=== PATIENT | female | born 1935 | race Caucasian/White ===

== ENCOUNTER 2018-06-26 10:24 | Outpatient (CLI) | payer MEDICARE ==
--- NOTE | 2018-06-26 11:26 | RAD ---
THORACIC SPINE THREE VIEWS: History: Thoracic compression fracture. Back pain. Comparison: None. FINDINGS: Bones show osteopenia. There is severe anterior wedge compression deformity involving the L1 vertebra . The thoracic vertebra maintain height and alignment. There is osteopenia and there are moderate hyp ertrophic changes with anterior and lateral osteophytes. Bridging osteophytes are seen on the right i n the lower thoracic spine. 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 There is severe compression deformit y of the L1 vertebra. POS: [facility]
== END 2018-06-26 10:25 | disposition home or self-care (01) ==
LOC: TBSIIMAG 10:24
PROVIDERS: ATTEND Neurological Surgery
DX: S22.008D Other fracture of unspecified thoracic vertebra, subsequent encounter for fracture with routine healing (principal); M47.894 Other spondylosis, thoracic region; M43.8X6 Other specified deforming dorsopathies, lumbar region
CPT/HCPCS: 72072

== ENCOUNTER 2019-05-26 13:26 | Outpatient (CLI) | payer MEDICARE ==
--- NOTE | 2019-05-26 15:24 | MRI ---
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 This was also present on the 2018 MRI. There has been further interval collapse of the previously collapsed T12 vertebral body. No w, the anterior two thirds of the vertebral body has approximately 80% loss of height. Mild loss of height posteriorly with minimal bony retropulsion. There is no longer bone marrow edema associated wi th this. There is T1 and T2 patchy, streaky very hypointense material within the collapsed T12 vertebral body which could either represent polymethylmethacrylate cement or sclerosis of bone. The b halina retropulsion results in mild central spinal canal stenosis that does not contact the spinal cord. Thoracic spinal cord is normal in size and signal. No syrinx. The rest of the vertebral body he ights are maintained. Bone marrow signal is normal throughout the rest of the thoracic spine levels. No central spinal spinal canal stenosis in the rest of the spine. Degenerative facet changes causing mild to moderate right neural foraminal stenosis at T10-11. No high-grade degenerative disc disease. IMPRESSION: 1.) Old compression/burst fracture of T12, with high-grade collapse of anterior two thirds, somewhat worse than on 07/03/2018. 2) no bone marrow edema associated with this or at any other level. 3) no high-grade central spinal canal stenosis at this level or any other level. 4) the rest of the thoracic spine is essentially normal.
--- NOTE | 2019-05-26 15:58 | MRI ---
MRI LUMBAR SPINE NONCONTRAST: DATE: 05/26/2019 HISTORY: 84-year-old female with wedge compression fracture of T12. Chronic low back pain. COMPARISON: 07/03/2018. FINDINGS: Further loss of height of the previously demonstrated compression-mild burst fracture of T12, now wit h approximately 80% loss of height involving anterior two thirds of the collapsed vertebral body. Very T1 hypointense and T2 hypointense streaky areas within the collapsed T12 vertebral body could re present vertebroplasty cement or sclerosis. Otherwise, the rest of that collapsed vertebral body has increased marrow signal, and no longer edema. No major spondylolisthesis. No major scoliosis. Con us medullaris terminates at L1-2. No high-grade disc space narrowing at any level. T11-12: No central or neural foraminal stenosis. T12: Minimal bony retropulsion without significant central spinal canal stenosis. T12-L1:Mild disc bulge. No significant central or neural foraminal stenosis. L1-2:Disc bulge. Posterior midline annular fissure. No central or neural foraminal stenosis. L2-3:The diffuse disc bulge has become slightly larger, causing a slightly greater degree of now mode rate thecal sac stenosis. Posterior epidural fat pad. Mild to moderate central spinal canal stenosis. Mild ligamentum flavum thickening. Mild bilateral facet DJD. Mild to moderate bilateral luis ral foraminal stenosis. L3-4:Interval increase in diffuse disc bulge. Slightly greater degree of mild central spinal canal st enosis and mild to moderate thecal sac stenosis. Mild bilateral neural foraminal stenosis. L4-5:Mild disc bulge. Again noted is the midline posterior annular fissure. Mild central stenosis. Mi ld bilateral neural foraminal stenosis. L5-S1:Mild disc bulge. Mild to moderate right neural foraminal stenosis. Mild left neural foraminal s tenosis. Spinal canal and thecal sac are generous in caliber. IMPRESSION: 1) old burst fracture collapse of T12, with further loss of height since 07/03/2018, currently no bone marrow edema and no high-grade spinal canal stenosis. 2) interval increase in sizes of disc bulges at L2-3 and L3-4. 3) moderate thecal sac stenosis and mild to moderate central spinal canal stenosis at L2-3.
== END 2019-05-26 13:27 | disposition home or self-care (01) ==
LOC: BICMRI 13:26
PROVIDERS: ATTEND Specialist
DX: S32.000A Wedge compression fracture of unspecified lumbar vertebra, initial encounter for closed fracture (principal); M51.26 Other intervertebral disc displacement, lumbar region; M48.061 Spinal stenosis, lumbar region without neurogenic claudication; Z87.81 Personal history of (healed) traumatic fracture
CPT/HCPCS: 72146; 72148

== ENCOUNTER 2021-02-06 12:38 | Emergency (ER) | payer MEDICARE ==
[2021-02-06 13:29] LABS: #Basophils 0.1 thou/uL (0.0-0.2); #Eosinphils 0.2 thou/uL (0.0-0.7); Hemoglobin 10.9 g/dL (12.0-16.0); Mean Platelet Volume 11.5 fL (7.4-10.4)
[2021-02-06 13:49] LABS: ALT (SGPT) 16 U/L (8-55); AST (SGOT) 22 U/L (5-34); Alkaline Phosphatase 92 U/L (40-110); Anion Gap 12 mmol/L (10-20); BUN (Urea Nitrogen) 25 mg/dL (9.8-20.1); Bilirubin, Total 0.7 mg/dL (0.2-1.2); Calc. Creatinine Clearance 0 mL/min (70-130); Calcium 10.4 mg/dL (7.8-10.44); Carbon Dioxide 25 mmol/L (23-31); Chloride 108 mmol/L (98-107); Globulin 2.7 g/dL (2.4-3.5); Glucose 100 mg/dL (83-110); Potassium 4.1 mmol/L (3.5-5.1); Protein, Total 6.7 g/dL (5.8-8.1); Sodium 141 mmol/L (136-145)
[2021-02-06 13:56] LABS: #Lymphocytes 2.1 thou/uL (1.20-3.40); #Monocytes 0.9 thou/uL (0.11-0.59); #Neutrophils 5.5 thou/uL (1.40-6.50); %Basophils 1.1 % (0.0-1.0); %Eosinophils 2.2 % (0.0-10.0); %Lymphocytes 23.9 % (21.0-51.0); %Monocytes 10.3 % (0.0-10.0); %Neutrophils 62.6 % (42.0-75.0); Mean Corpuscular HGB CONC 33.4 g/dL (32.0-36.0); Mean Corpuscular Hemoglobin 34.6 pg (27.0-31.0); Platelet Count 145 thou/uL (130-400); RBC Distribution Width 12.7 % (11.5-14.5); Red Blood Cell (RBC) Count 3.16 mill/uL (4.20-5.40); White Blood Cell (WBC) Count 8.8 thou/uL (4.8-10.8)
[2021-02-06] MEDS ORDERED: Iopamidol-370 76% 500 ML 1 ML ONE (14:15)
[2021-02-06] MEDS ORDERED: Nitroglycerin 0.4 MG TAB 1 EACH ONE (15:28)
[2021-02-06 16:54] LABS: Troponin I 0.024 ng/mL (< 0.028)
[2021-02-06] MEDS ORDERED: Aspirin Chewable 81 MG TAB ONE (17:04)
== END 2021-02-06 22:04 | disposition short-term general hospital (02) ==
LOC: ERS 12:38
DX: R07.9 Chest pain, unspecified (principal); R60.0 Localized edema; R06.02 Shortness of breath; M79.89 Other specified soft tissue disorders; E78.5 Hyperlipidemia, unspecified; E78.00 Pure hypercholesterolemia, unspecified; I10 Essential (primary) hypertension; Z79.899 Other long term (current) drug therapy
CPT/HCPCS: 36415; 71045; 71275; 74174; 80053; 83880; 84484; 85025; 93005; Q9967

== ENCOUNTER 2021-08-25 08:51 | Emergency (ER) | payer MEDICARE ==
[2021-08-25 09:25] LABS: INR-International Normal Ratio 1.3; PTT 32.7 sec (22.9-36.1); Prothrombin Time 16.2 sec (12.0-14.7)
[2021-08-25 09:36] LABS: ALT (SGPT) 17 U/L (8-55); AST (SGOT) 52 U/L (5-34); Albumin 3.1 g/dL (3.4-4.8); Alkaline Phosphatase 91 U/L (40-110); Anion Gap 14 mmol/L (10-20); BUN (Urea Nitrogen) 21 mg/dL (9.8-20.1); Bilirubin, Total 0.9 mg/dL (0.2-1.2); Calc. Creatinine Clearance 0 mL/min (70-130); Calcium 9.5 mg/dL (7.8-10.44); Carbon Dioxide 22 mmol/L (23-31); Chloride 109 mmol/L (98-107); Globulin 2.6 g/dL (2.4-3.5); Glucose 102 mg/dL (83-110); Potassium 3.6 mmol/L (3.5-5.1); Protein, Total 5.7 g/dL (5.8-8.1); Sodium 141 mmol/L (136-145)
[2021-08-25 09:37] LABS: Hemoglobin 8.4 g/dL (12.0-16.0); Mean Corpuscular HGB CONC 31.9 g/dL (32.0-36.0); Mean Corpuscular Hemoglobin 32.7 pg (27.0-31.0); Mean Platelet Volume 12.1 fL (7.4-10.4); Platelet Count 120 thou/uL (130-400); Red Blood Cell (RBC) Count 2.58 mill/uL (4.20-5.40); White Blood Cell (WBC) Count 8.8 thou/uL (4.8-10.8)
[2021-08-25 09:54] LABS: Anisocytosis MODERATE=16-30 cells (100X) (0-5/hpf); Band 24 % (5-11); Lymphocytes 19 % (21-51); MDiff Complete? YES; Monocytes 6 % (0-10); Neutrophil 51 % (42-75); Polychromasia SLIGHT = 2-3 cells (100X) (0-2/hpf); Schistocytes SLIGHT = 2-5 cells (100X) (0-1/hpf); Tear Drops SLIGHT = 2-5 cells (100X) (0-1/hpf)
[2021-08-25 10:07] LABS: CKMB 18.9 ng/mL (0-6.6)
[2021-08-25 10:57] LABS: Bacteria/HPF 2+ HPF (None Seen); Bilirubin Negative (Negative); Blood, Urine 1+ (Negative); Clarity Clear (Clear); Glucose, Urine (Dipstick) Normal (Negative); Ketone, Urine Negative (Negative); Leukocyte 25 Leu/uL (Negative); Nitrite 1+ (Negative); Protein, Urine (Dipstick) 50 mg/dL (Neg-Trace); Squamous Epithelial 0-3 HPF (0-3); pH, Urine 5.5 (5.0-9.0)
[2021-08-25] MEDS ORDERED: Iopamidol-370 76% 500 ML 1 ML ONE (12:00)
[2021-08-25 13:29] LABS: SARS-CoV-2 NAA Rapid Test DETECTED (NotDetected)
== END 2021-08-25 11:18 | disposition short-term general hospital (02) ==
LOC: ERS 08:51
DX: U07.1 COVID-19 (principal); I63.311 Cerebral infarction due to thrombosis of right middle cerebral artery; I21.4 Non-ST elevation (NSTEMI) myocardial infarction; R29.810 Facial weakness; R29.705 NIHSS score 5; E78.5 Hyperlipidemia, unspecified; E78.00 Pure hypercholesterolemia, unspecified; I10 Essential (primary) hypertension; Z79.899 Other long term (current) drug therapy
CPT/HCPCS: 0042T; 70450; 70496; 70498; 71045; 80053; 82553; 83880; 84484; 85025; 85610; 85730; 93005; 94760; U0002; 36415; 81003; 81015; Q9967

== ENCOUNTER 2021-11-22 10:56 | Inpatient (IN) | payer MEDICARE ==
[2021-11-22 11:37] LABS: #Eosinphils 0.1 thou/uL (0.0-0.7); #Lymphocytes 1.4 thou/uL (1.20-3.40); #Monocytes 0.7 thou/uL (0.11-0.59); #Neutrophils 7.2 thou/uL (1.40-6.50); %Basophils 0.5 % (0.0-1.0); %Eosinophils 0.6 % (0.0-10.0); %Lymphocytes 14.6 % (21.0-51.0); %Monocytes 7.9 % (0.0-10.0); %Neutrophils 76.5 % (42.0-75.0); Hemoglobin 9.7 g/dL (12.0-16.0); Mean Corpuscular HGB CONC 34.1 g/dL (32.0-36.0); Mean Corpuscular Hemoglobin 36.7 pg (27.0-31.0); Mean Platelet Volume 10.5 fL (7.4-10.4); Platelet Count 120 thou/uL (130-400); RBC Distribution Width 14.4 % (11.5-14.5); Red Blood Cell (RBC) Count 2.65 mill/uL (4.20-5.40); White Blood Cell (WBC) Count 9.5 thou/uL (4.8-10.8)
[2021-11-22 11:59] LABS: ALT (SGPT) 19 U/L (8-55); AST (SGOT) 41 U/L (5-34); Albumin 2.9 g/dL (3.4-4.8); Alkaline Phosphatase 215 U/L (40-110); Anion Gap 13 mmol/L (10-20); BUN (Urea Nitrogen) 38 mg/dL (9.8-20.1); Bilirubin, Total 0.9 mg/dL (0.2-1.2); Calc. Creatinine Clearance 0 mL/min (70-130); Calcium 9.5 mg/dL (7.8-10.44); Carbon Dioxide 22 mmol/L (23-31); Chloride 104 mmol/L (98-107); Globulin 2.4 g/dL (2.4-3.5); Glucose 106 mg/dL (83-110); Potassium 4.5 mmol/L (3.5-5.1); Protein, Total 5.3 g/dL (5.8-8.1); Sodium 134 mmol/L (136-145)
[2021-11-22 12:01] LABS: MDiff Complete? YES
[2021-11-22 12:02] LABS: Platelet Morphology Comment Appears Decreased; Polychromasia SLIGHT = 2-3 cells (100X) (0-2/hpf)
[2021-11-22 12:21] LABS: CKMB 17.8 ng/mL (0-6.6)
[2021-11-22] MEDS ORDERED: Norepinephrine 8 MG/0.9% NS 250 ML ONE (15:19)
[2021-11-22] MEDS ORDERED: Acetaminophen 325 MG/10.15 ML UDCUP PO PRN (15:29)
[2021-11-22] MEDS ORDERED: Norepinephrine 8 MG/0.9% NS 250 ML IVPB PRN (15:29)
[2021-11-22 15:55] LABS: Magnesium 1.5 mg/dL (1.6-2.6)
[2021-11-22 16:39] LABS: Lactic Acid 2.1 mmol/L (0.5-2.2)
[2021-11-22 16:46] LABS: SARS-CoV-2 NAA Rapid Test Not Detected (NotDetected)
[2021-11-22 17:28] LABS: CKMB 26.1 ng/mL (0-6.6)
[2021-11-22] MEDS ORDERED: Clopidogrel Bisulfate 75 MG TAB PO SCH (18:45)
[2021-11-22] MEDS ORDERED: Aspirin 325 MG TAB PO SCH (18:45)
[2021-11-22] MEDS ORDERED: Aspirin 325 MG TAB ONE (18:51)
[2021-11-22] MEDS ORDERED: Clopidogrel Bisulfate 75 MG TAB ONE (18:51)
[2021-11-22] MEDS ORDERED: Apixaban 2.5 MG TAB PO SCH ×2 (19:45→21:00)
[2021-11-22 21:01] LABS: CKMB 26.2 ng/mL (0-6.6)
[2021-11-22] MEDS ORDERED: Famotidine/PF 20 mg/2ml Vial ONE (22:30)
[2021-11-22] MEDS: Famotidine/PF 20 mg/2ml Vial SLOW IVP SCH (23:24)
[2021-11-23] MEDS ORDERED: Acetaminophen/Codeine 30-300mg Tablet ONE (00:24)
[2021-11-23] MEDS: Rosuvastatin 20 MG TAB PO SCH ×2 (00:33→22:28)
[2021-11-23] MEDS: Acetaminophen/Codeine 30-300mg Tablet PO PRN ×2 (00:33→13:42)
[2021-11-23 03:06] LABS: Bacteria/HPF 4+ HPF (None Seen); Bilirubin Negative (Negative); Blood, Urine 1+ (Negative); Clarity Extra Turbid (Clear); Glucose, Urine (Dipstick) Normal (Negative); Ketone, Urine Negative (Negative); Leukocyte 500 Leu/uL (Negative); Nitrite Negative (Negative); Protein, Urine (Dipstick) 50 mg/dL (Neg-Trace); RBC/HPF 21-50 HPF (0-3); Specific Gravity, Urine 1.016 (1.002-1.036); Squamous Epithelial Greater than 50 HPF (0-3); Urobilinogen Normal mg/dL (Less than 2); WBC/HPF Greater than 50 HPF (0-3)
[2021-11-23] MEDS ORDERED: OLANZapine 10 MG VIAL IM SCH (05:00)
[2021-11-23] MEDS ORDERED: Sterile Water 10 ML VIAL FS PRN (05:00)
[2021-11-23 06:19] VITALS: BMI 23.4
[2021-11-23] MEDS ORDERED: Clopidogrel Bisulfate 75 MG TAB PO SCH (09:00)
[2021-11-23] MEDS: Aspirin 81 mg Enteric Coated Tablet PO SCH (09:58)
[2021-11-23] MEDS: Clopidogrel Bisulfate 75 MG TAB PO SCH (09:58)
[2021-11-23] MEDS: Apixaban 2.5 MG TAB PO SCH ×2 (09:58→22:29)
[2021-11-23 15:34] LABS: Anion Gap 12 mmol/L (10-20); BUN (Urea Nitrogen) 27 mg/dL (9.8-20.1); Calc. Creatinine Clearance 41 mL/min (70-130); Calcium 9.6 mg/dL (7.8-10.44); Carbon Dioxide 21 mmol/L (23-31); Chloride 106 mmol/L (98-107); Glucose 117 mg/dL (83-110); Potassium 4.1 mmol/L (3.5-5.1); Sodium 135 mmol/L (136-145)
[2021-11-23] MEDS: cefTRIAXone\\ROCEPHIN 1 GM in Sodium Chloride 0.9% 100 ML IVPB SCH (17:30)
[2021-11-23] MEDS: Famotidine/PF 20 mg/2ml Vial SLOW IVP SCH (22:29)
[2021-11-24 06:06] LABS: Anion Gap 10 mmol/L (10-20); BUN (Urea Nitrogen) 27 mg/dL (9.8-20.1); Calc. Creatinine Clearance 41 mL/min (70-130); Calcium 9.3 mg/dL (7.8-10.44); Carbon Dioxide 23 mmol/L (23-31); Chloride 107 mmol/L (98-107); Glucose 108 mg/dL (83-110); Potassium 4.1 mmol/L (3.5-5.1); Sodium 136 mmol/L (136-145)
[2021-11-24] MEDS: Clopidogrel Bisulfate 75 MG TAB PO SCH (09:11)
[2021-11-24] MEDS: Aspirin 81 mg Enteric Coated Tablet PO SCH (09:11)
[2021-11-24] MEDS: Apixaban 2.5 MG TAB PO SCH ×2 (09:11→20:34)
[2021-11-24] MEDS: cefTRIAXone\\ROCEPHIN 1 GM in Sodium Chloride 0.9% 100 ML IVPB SCH (17:37)
[2021-11-24] MEDS: Rosuvastatin 20 MG TAB PO SCH (20:33)
[2021-11-24] MEDS: Famotidine/PF 20 mg/2ml Vial SLOW IVP SCH (20:34)
[2021-11-25 05:57] LABS: Anion Gap 9 mmol/L (10-20); BUN (Urea Nitrogen) 22 mg/dL (9.8-20.1); Calc. Creatinine Clearance 42 mL/min (70-130); Calcium 9.6 mg/dL (7.8-10.44); Carbon Dioxide 21 mmol/L (23-31); Chloride 109 mmol/L (98-107); Glucose 90 mg/dL (83-110); Sodium 135 mmol/L (136-145)
[2021-11-25] MEDS: Apixaban 2.5 MG TAB PO SCH ×2 (10:04→20:35)
[2021-11-25] MEDS: Clopidogrel Bisulfate 75 MG TAB PO SCH (10:04)
[2021-11-25] MEDS: Aspirin 81 mg Enteric Coated Tablet PO SCH (10:04)
[2021-11-25] MEDS ORDERED: Furosemide 20 MG/2 ML VIAL SLOW IVP SCH (13:45)
[2021-11-25] MEDS: Acetaminophen/Codeine 30-300mg Tablet PO PRN (17:25)
[2021-11-25] MEDS: cefTRIAXone\\ROCEPHIN 1 GM in Sodium Chloride 0.9% 100 ML IVPB SCH (17:26)
[2021-11-25] MEDS: Rosuvastatin 20 MG TAB PO SCH (20:35)
[2021-11-25] MEDS: Famotidine/PF 20 mg/2ml Vial SLOW IVP SCH (20:35)
[2021-11-26] MEDS: Acetaminophen 650 MG/20.3 ML UDCUP PO PRN (06:28)
[2021-11-26] MEDS: Clopidogrel Bisulfate 75 MG TAB PO SCH (09:28)
[2021-11-26] MEDS: Aspirin 81 mg Enteric Coated Tablet PO SCH (09:28)
[2021-11-26] MEDS: Apixaban 2.5 MG TAB PO SCH ×2 (09:28→20:06)
[2021-11-26] MEDS ORDERED: Nitroglycerin 0.4 MG TAB (25 Tab Bottle) SL PRN (11:46)
[2021-11-26] MEDS: Carvedilol 3.125 MG TAB PO SCH (16:19)
[2021-11-26] MEDS: cefTRIAXone\\ROCEPHIN 1 GM in Sodium Chloride 0.9% 100 ML IVPB SCH (17:35)
[2021-11-26] MEDS: Famotidine/PF 20 mg/2ml Vial SLOW IVP SCH (20:06)
[2021-11-26] MEDS: Rosuvastatin 20 MG TAB PO SCH (20:06)
[2021-11-26] MEDS ORDERED: Apixaban 2.5 MG TAB PO SCH (21:00)
[2021-11-27] MEDS ORDERED: Levothyroxine Sodium 100 MCG TAB PO SCH (06:00)
[2021-11-27] MEDS ORDERED: Clopidogrel Bisulfate 75 MG TAB PO SCH (09:00)
[2021-11-27] MEDS: Polyethylene Glycol 3350 17 GM Packet PO SCH (09:34)
[2021-11-27] MEDS: Bumetanide 1 MG TAB PO SCH (09:34)
[2021-11-27] MEDS: Apixaban 2.5 MG TAB PO SCH ×2 (09:34→20:41)
[2021-11-27] MEDS: Ascorbic Acid 500 mg Chewable Tablet PO SCH (09:34)
[2021-11-27] MEDS: Clopidogrel Bisulfate 75 MG TAB PO SCH (09:34)
[2021-11-27] MEDS: Carvedilol 3.125 MG TAB PO SCH ×2 (09:34→17:32)
[2021-11-27] MEDS: Aspirin 81 mg Enteric Coated Tablet PO SCH (09:34)
[2021-11-27] MEDS: Acetaminophen 650 MG/20.3 ML UDCUP PO PRN (11:38)
[2021-11-27] MEDS: Rosuvastatin 20 MG TAB PO SCH (20:40)
[2021-11-27] MEDS: Famotidine/PF 20 mg/2ml Vial SLOW IVP SCH (20:41)
[2021-11-28] MEDS: Acetaminophen 650 MG/20.3 ML UDCUP PO PRN (05:59)
[2021-11-28] MEDS: Levothyroxine Sodium 112 MCG TAB PO SCH (06:00)
[2021-11-28] MEDS: Bumetanide 1 MG TAB PO SCH (09:15)
[2021-11-28] MEDS: Ascorbic Acid 500 mg Chewable Tablet PO SCH (09:15)
[2021-11-28] MEDS: Aspirin 81 mg Enteric Coated Tablet PO SCH (09:15)
[2021-11-28] MEDS: Carvedilol 3.125 MG TAB PO SCH ×2 (09:15→16:56)
[2021-11-28] MEDS: Polyethylene Glycol 3350 17 GM Packet PO SCH (09:15)
[2021-11-28] MEDS: Clopidogrel Bisulfate 75 MG TAB PO SCH (09:15)
[2021-11-28] MEDS: Apixaban 2.5 MG TAB PO SCH ×2 (09:15→20:41)
[2021-11-28] MEDS: Rosuvastatin 20 MG TAB PO SCH (20:41)
[2021-11-29 05:10] LABS: Hemoglobin 10.6 g/dL (12.0-16.0); Platelet Count 235 thou/uL (130-400)
[2021-11-29] MEDS: Levothyroxine Sodium 112 MCG TAB PO SCH (05:43)
[2021-11-29 08:36] VITALS: TEMP 97.9
[2021-11-29] MEDS: Carvedilol 3.125 MG TAB PO SCH ×2 (09:59→16:41)
[2021-11-29] MEDS: Clopidogrel Bisulfate 75 MG TAB PO SCH (09:59)
[2021-11-29] MEDS: Polyethylene Glycol 3350 17 GM Packet PO SCH ×2 (09:59→10:05)
[2021-11-29] MEDS: Ascorbic Acid 500 mg Chewable Tablet PO SCH (09:59)
[2021-11-29] MEDS: Apixaban 2.5 MG TAB PO SCH (09:59)
[2021-11-29] MEDS: Aspirin 81 mg Enteric Coated Tablet PO SCH (09:59)
[2021-11-29] MEDS: Bumetanide 1 MG TAB PO SCH (10:00)
[2021-11-29 17:15] VITALS: BP 112/65
== END 2021-11-29 19:00 | DRG 689 ==
LOC: ERS 10:56 → ERHOLD 15:15 → CCU 11-23 05:10 → NEURO 11-23 11:36 → 2NO 11-24 11:35
PROVIDERS: ADMIT Internal Medicine; ATTEND Internal Medicine
PROC: 3E033XZ Introduction of Vasopressor into Peripheral Vein, Percutaneous Approach (ICD-10-PCS; principal; 2021-11-22)
PROC: 06HY33Z Insertion of Infusion Device into Lower Vein, Percutaneous Approach (ICD-10-PCS; 2021-11-22)
DX: N30.00 Acute cystitis without hematuria (principal); R57.8 Other shock; I21.A1 Myocardial infarction type 2; I50.22 Chronic systolic (congestive) heart failure; N17.9 Acute kidney failure, unspecified; F05 Delirium due to known physiological condition; Z20.822 Contact with and (suspected) exposure to COVID-19; E78.5 Hyperlipidemia, unspecified; I11.0 Hypertensive heart disease with heart failure; D53.9 Nutritional anemia, unspecified; E78.00 Pure hypercholesterolemia, unspecified; I48.91 Unspecified atrial fibrillation; I73.9 Peripheral vascular disease, unspecified; I25.5 Ischemic cardiomyopathy; I08.3 Combined rheumatic disorders of mitral, aortic and tricuspid valves; F03.90 Unspecified dementia, unspecified severity, without behavioral disturbance, psychotic disturbance, mood disturbance, and anxiety; B96.20 Unspecified Escherichia coli [E. coli] as the cause of diseases classified elsewhere; E03.9 Hypothyroidism, unspecified; I25.10 Atherosclerotic heart disease of native coronary artery without angina pectoris; Z95.1 Presence of aortocoronary bypass graft; Z86.73 Personal history of transient ischemic attack (TIA), and cerebral infarction without residual deficits; Z86.16 Personal history of COVID-19; Z79.01 Long term (current) use of anticoagulants; Z95.5 Presence of coronary angioplasty implant and graft; Z95.828 Presence of other vascular implants and grafts; Z90.49 Acquired absence of other specified parts of digestive tract; Z90.710 Acquired absence of both cervix and uterus; Z87.891 Personal history of nicotine dependence; Z79.899 Other long term (current) drug therapy; Z79.02 Long term (current) use of antithrombotics/antiplatelets; Z79.890 Hormone replacement therapy
CPT/HCPCS: 36415; 36416; 36556; 71045; 80048; 80053; 81003; 81015; 82553; 82607; 82746; 83605; 83735; 83880; 84443; 84484; 85014; 85018; 85025; 85049; 87077; 87086; 87186; 93005; 93306; 96365; J0696; J1940; J3490; S0028; U0002

== ENCOUNTER 2021-12-02 18:51 | Observation (INO) | payer MEDICARE ==
[2021-12-02 20:13] LABS: #Basophils 0.1 thou/uL (0.0-0.2); #Eosinphils 0.2 thou/uL (0.0-0.7); #Lymphocytes 3.2 thou/uL (1.20-3.40); #Monocytes 0.6 thou/uL (0.11-0.59); #Neutrophils 5.3 thou/uL (1.40-6.50); %Basophils 0.7 % (0.0-1.0); %Eosinophils 2.1 % (0.0-10.0); %Lymphocytes 34.3 % (21.0-51.0); %Neutrophils 56.8 % (42.0-75.0); Mean Corpuscular HGB CONC 33.4 g/dL (32.0-36.0); Mean Corpuscular Hemoglobin 35.1 pg (27.0-31.0); Mean Platelet Volume 9.5 fL (7.4-10.4); Platelet Count 255 thou/uL (130-400); Red Blood Cell (RBC) Count 2.86 mill/uL (4.20-5.40); White Blood Cell (WBC) Count 9.4 thou/uL (4.8-10.8)
[2021-12-02 20:53] LABS: Chloride 97 mmol/L (98-107); Potassium 3.6 mmol/L (3.5-5.1); Sodium 137 mmol/L (136-145)
[2021-12-02 20:54] LABS: Calcium 9.6 mg/dL (7.8-10.44); Glucose 134 mg/dL (83-110)
[2021-12-02 20:55] LABS: CKMB 2.2 ng/mL (0-6.6); Globulin 2.4 g/dL (2.4-3.5); Protein, Total 5.4 g/dL (5.8-8.1)
[2021-12-02 20:56] LABS: Anion Gap 14 mmol/L (10-20); Bilirubin, Total 0.5 mg/dL (0.2-1.2); Carbon Dioxide 30 mmol/L (23-31)
[2021-12-02 20:57] LABS: Alkaline Phosphatase 99 U/L (40-110)
[2021-12-02 20:58] LABS: Calc. Creatinine Clearance 0 mL/min (70-130)
[2021-12-02 20:59] LABS: AST (SGOT) 17 U/L (5-34); BUN (Urea Nitrogen) 13 mg/dL (9.8-20.1)
[2021-12-02 21:00] LABS: ALT (SGPT) 8 U/L (8-55)
[2021-12-03 00:06] LABS: Troponin I 0.537 ng/mL (< 0.028)
[2021-12-03] MEDS ORDERED: Enoxaparin Sodium 80 MG/0.8 ML SYRINGE SC SCH ×2 (00:45)
[2021-12-03] MEDS ORDERED: Ondansetron ODT 4 MG TAB PO PRN (00:46)
[2021-12-03] MEDS ORDERED: Ondansetron PF 4 MG/2 ML Vial IVP PRN (00:46)
[2021-12-03 04:49] LABS: SARS-CoV-2 NAA Rapid Test Not Detected (NotDetected)
[2021-12-03 13:13] LABS: #Basophils 0.1 thou/uL (0.0-0.2); #Eosinphils 0.2 thou/uL (0.0-0.7); #Lymphocytes 2.4 thou/uL (1.20-3.40); #Monocytes 0.4 thou/uL (0.11-0.59); #Neutrophils 4.3 thou/uL (1.40-6.50); %Eosinophils 2.7 % (0.0-10.0); %Lymphocytes 32.9 % (21.0-51.0); %Monocytes 5.5 % (0.0-10.0); %Neutrophils 57.9 % (42.0-75.0); Hemoglobin 9.9 g/dL (12.0-16.0); Mean Corpuscular HGB CONC 32.7 g/dL (32.0-36.0); Mean Corpuscular Hemoglobin 34.3 pg (27.0-31.0); Mean Platelet Volume 9.3 fL (7.4-10.4); Platelet Count 232 thou/uL (130-400); RBC Distribution Width 15.1 % (11.5-14.5); Red Blood Cell (RBC) Count 2.89 mill/uL (4.20-5.40); White Blood Cell (WBC) Count 7.4 thou/uL (4.8-10.8)
[2021-12-03 13:21] LABS: Anion Gap 10 mmol/L (10-20); BUN (Urea Nitrogen) 10 mg/dL (9.8-20.1); Calc. Creatinine Clearance 40 mL/min (70-130); Calcium 9.9 mg/dL (7.8-10.44); Carbon Dioxide 32 mmol/L (23-31); Chloride 100 mmol/L (98-107); Glucose 96 mg/dL (83-110); Magnesium 1.4 mg/dL (1.6-2.6); Potassium 3.6 mmol/L (3.5-5.1); Sodium 138 mmol/L (136-145); Uric Acid 7.2 mg/dL (2.6-6.0)
[2021-12-03] MEDS ORDERED: Aspirin 81 mg Enteric Coated Tablet PO SCH (14:00)
[2021-12-03 14:07] LABS: CKMB 2.3 ng/mL (0-6.6)
[2021-12-03] MEDS ORDERED: Clopidogrel Bisulfate 75 MG TAB PO SCH (14:15)
[2021-12-03] MEDS ORDERED: Levothyroxine Sodium 112 MCG TAB PO SCH (14:15)
[2021-12-03] MEDS: Carvedilol 3.125 MG TAB PO SCH (17:59)
[2021-12-03] MEDS: Acetaminophen 325 MG TAB PO PRN (20:14)
[2021-12-03] MEDS: Apixaban 2.5 MG TAB PO SCH (20:14)
[2021-12-03] MEDS ORDERED: Atorvastatin Calcium 40 MG TAB PO SCH (21:00)
[2021-12-03 21:10] LABS: Bacteria/HPF None Seen HPF (None Seen); Bilirubin Negative (Negative); Blood, Urine Negative (Negative); Clarity Clear (Clear); Glucose, Urine (Dipstick) Normal (Negative); Ketone, Urine Negative (Negative); Leukocyte 25 Leu/uL (Negative); Nitrite Negative (Negative); Protein, Urine (Dipstick) 30 mg/dL (Neg-Trace); RBC/HPF 0-3 HPF (0-3); Specific Gravity, Urine 1.022 (1.002-1.036); Squamous Epithelial 0-3 HPF (0-3); Urobilinogen Normal mg/dL (Less than 2); WBC/HPF 0-3 HPF (0-3); pH, Urine 5.5 (5.0-9.0)
[2021-12-03 21:42] LABS: Urine Culture Reflex Yes Yes
[2021-12-04] MEDS ORDERED: Levothyroxine Sodium 112 MCG TAB PO SCH (06:00)
[2021-12-04] MEDS: Carvedilol 3.125 MG TAB PO SCH ×2 (08:50→17:09)
[2021-12-04] MEDS: Apixaban 2.5 MG TAB PO SCH (08:50)
[2021-12-04] MEDS ORDERED: Aspirin 81 mg Enteric Coated Tablet PO SCH (09:00)
[2021-12-04] MEDS ORDERED: Clopidogrel Bisulfate 75 MG TAB PO SCH (09:00)
[2021-12-04] MEDS: Acetaminophen 325 MG TAB PO PRN (11:47)
[2021-12-04 13:48] LABS: Magnesium 1.4 mg/dL (1.6-2.6)
[2021-12-04] MEDS ORDERED: Magnesium 2 GM/50 ML 2 GM in Premix Bag 1 BAG IVPB SCH (15:30)
[2021-12-04 17:02] VITALS: TEMP 98.8
[2021-12-04 17:13] VITALS: BP 120/56
== END 2021-12-04 18:30 | disposition home or self-care (01) ==
LOC: ERS 18:51 → ERHOLD 22:32 → NEURO 12-03 02:53
PROVIDERS: ADMIT Student in an Organized Health Care Education/Training Program; ATTEND Internal Medicine
DX: I22.2 Subsequent non-ST elevation (NSTEMI) myocardial infarction (principal); I21.4 Non-ST elevation (NSTEMI) myocardial infarction; E83.42 Hypomagnesemia; I25.10 Atherosclerotic heart disease of native coronary artery without angina pectoris; I11.0 Hypertensive heart disease with heart failure; I50.42 Chronic combined systolic (congestive) and diastolic (congestive) heart failure; E78.5 Hyperlipidemia, unspecified; I25.2 Old myocardial infarction; I48.21 Permanent atrial fibrillation; N17.9 Acute kidney failure, unspecified; R73.9 Hyperglycemia, unspecified; D53.9 Nutritional anemia, unspecified; N39.0 Urinary tract infection, site not specified; B96.20 Unspecified Escherichia coli [E. coli] as the cause of diseases classified elsewhere; I34.0 Nonrheumatic mitral (valve) insufficiency; I25.5 Ischemic cardiomyopathy; I35.0 Nonrheumatic aortic (valve) stenosis; I73.9 Peripheral vascular disease, unspecified; F03.90 Unspecified dementia, unspecified severity, without behavioral disturbance, psychotic disturbance, mood disturbance, and anxiety; M10.9 Gout, unspecified; E44.0 Moderate protein-calorie malnutrition; Z68.20 Body mass index [BMI] 20.0-20.9, adult; Z86.16 Personal history of COVID-19; Z86.73 Personal history of transient ischemic attack (TIA), and cerebral infarction without residual deficits; Z87.891 Personal history of nicotine dependence; Z79.01 Long term (current) use of anticoagulants; Z79.02 Long term (current) use of antithrombotics/antiplatelets; Z79.2 Long term (current) use of antibiotics; Z79.82 Long term (current) use of aspirin; Z79.899 Other long term (current) drug therapy; Z88.8 Allergy status to other drugs, medicaments and biological substances; Z95.0 Presence of cardiac pacemaker; Z95.1 Presence of aortocoronary bypass graft; Z95.5 Presence of coronary angioplasty implant and graft; Z20.822 Contact with and (suspected) exposure to COVID-19
CPT/HCPCS: 71045; 80048; 80053; 81001; 82553 ×2; 82565; 82607; 82746; 83735 ×2; 83880; 84484 ×3; 84550; 85025 ×2; 87086; 93005 ×2; 93798; 96372; 96374; 97116; 97139 ×2; G0378 ×4; U0002; 36415; J1650; J3475

== ENCOUNTER 2022-03-27 11:41 | Outpatient (CLI) | payer MEDICARE | END 2022-03-27 11:42 | disposition home or self-care (01) | LOC: SCSMRI 11:41 | PROVIDERS: ATTEND Family Medicine | DX: M47.816 Spondylosis without myelopathy or radiculopathy, lumbar region (principal); S32.049A Unspecified fracture of fourth lumbar vertebra, initial encounter for closed fracture; M48.061 Spinal stenosis, lumbar region without neurogenic claudication | CPT/HCPCS: 72148 ==

== ENCOUNTER 2022-05-09 12:02 | Outpatient (CLI) | payer MEDICARE | END 2022-05-09 12:03 | disposition home or self-care (01) | LOC: BICRAD 12:02 | PROVIDERS: ATTEND Family Medicine | DX: S32.049A Unspecified fracture of fourth lumbar vertebra, initial encounter for closed fracture (principal) | CPT/HCPCS: 72100 ==

== ENCOUNTER 2022-09-30 16:46 | Emergency (ER) | payer MEDICARE ==
[2022-09-30 18:25] LABS: #Basophils 0.1 thou/uL (0.0-0.2); #Eosinphils 0.1 thou/uL (0.0-0.7); #Lymphocytes 1.5 thou/uL (1.20-3.40); #Monocytes 0.9 thou/uL (0.11-0.59); #Neutrophils 10.5 thou/uL (1.40-6.50); %Basophils 0.6 % (0.0-1.0); %Eosinophils 0.6 % (0.0-10.0); %Lymphocytes 11.2 % (21.0-51.0); %Neutrophils 80.6 % (42.0-75.0); Hemoglobin 9.9 g/dL (12.0-16.0); Mean Corpuscular HGB CONC 32.1 g/dL (32.0-36.0); Mean Corpuscular Hemoglobin 35.7 pg (27.0-31.0); Mean Platelet Volume 12.3 fL (7.4-10.4); Platelet Count 181 10x3/uL (130-400); RBC Distribution Width 17.1 % (11.5-14.5); Red Blood Cell (RBC) Count 2.77 mill/uL (4.20-5.40); White Blood Cell (WBC) Count 13.1 10x3/uL (4.8-10.8)
[2022-09-30 18:42] LABS: Anisocytosis SLIGHT = 6-15 cells (100X) (0-5/hpf); Elliptocytes SLIGHT = 2-5 cells (100X) (0-1/hpf); MDiff Complete? YES; Macrocytosis SLIGHT = 6-15 cells (100X) (0-5/hpf); Ovalocytes SLIGHT = 2-5 cells (100X) (0-1/hpf); Platelet Morphology Comment Appears Adequate; Poikilocytosis SLIGHT = 6-15 cells (100X) (0-5/hpf); Polychromasia MODERATE = 3-4 cells (100X) (0-2/hpf); Schistocytes SLIGHT = 2-5 cells (100X) (0-1/hpf); Tear Drops SLIGHT = 2-5 cells (100X) (0-1/hpf)
[2022-09-30 18:47] LABS: ALT (SGPT) 44 U/L (8-55); AST (SGOT) 35 U/L (5-34); Albumin 3.9 g/dL (3.4-4.8); Alkaline Phosphatase 114 U/L (40-110); Anion Gap 14 mmol/L (10-20); BUN (Urea Nitrogen) 37 mg/dL (9.8-20.1); CK (CPK) 31 U/L (29-168); Calc. Creatinine Clearance 0 mL/min (70-130); Calcium 10.1 mg/dL (7.8-10.44); Carbon Dioxide 21 mmol/L (23-31); Chloride 107 mmol/L (98-107); Estimated GFR 42; Globulin 2.1 g/dL (2.4-3.5); Glucose 109 mg/dL (83-110); Magnesium 1.9 mg/dL (1.6-2.6); Potassium 5.4 mmol/L (3.5-5.1); Sodium 137 mmol/L (136-145)
[2022-09-30] MEDS ORDERED: Ibuprofen 200 MG TAB ONE (19:21)
[2022-09-30] MEDS ORDERED: Acetaminophen 325 MG TAB ONE (21:12)
[2022-09-30 21:48] LABS: Bacteria/HPF 2+ HPF (None Seen); Bilirubin Negative (Negative); Blood, Urine Negative (Negative); Clarity Turbid (Clear); Glucose, Urine (Dipstick) Normal (Negative); Ketone, Urine Negative (Negative); Leukocyte 500 Leu/uL (Negative); Nitrite Negative (Negative); Protein, Urine (Dipstick) Negative (Neg-Trace); Specific Gravity, Urine 1.018 (1.002-1.036); Urobilinogen Normal mg/dL (Less than 2); WBC/HPF Greater than 50 HPF (0-3)
[2022-09-30] MEDS ORDERED: cefTRIAXone\\ROCEPHIN 1 GM VIAL ONE (21:57)
== END 2022-09-30 22:34 | disposition home or self-care (01) ==
LOC: ERS 16:46
DX: M54.9 Dorsalgia, unspecified (principal); N39.0 Urinary tract infection, site not specified; I11.0 Hypertensive heart disease with heart failure; I50.9 Heart failure, unspecified; E78.5 Hyperlipidemia, unspecified; I25.10 Atherosclerotic heart disease of native coronary artery without angina pectoris
CPT/HCPCS: 36415; 70450; 71045; 72125; 72128; 72170; 80053; 81003; 81015; 82550; 83735; 83880; 84443; 84484; 85025; 93005; 96365; J0696